=== PATIENT | male | born 1950 | race Hispanic/Latino ===

== ENCOUNTER 2018-03-15 18:43 | Emergency (ER) | payer MEDICARE ==
[2018-03-15 18:47] VITALS: BMI 28.7
[2018-03-15 19:01] VITALS: RESP 18; TEMP 98
[2018-03-15] MEDS ORDERED: Oxycodone/Acetaminophen 5/325 mg Tab ONE (19:22)
--- NOTE | 2018-03-15 19:28 | ED PDOC ---
Arrival/HPI - General Chief Complaint: ENT Problem Time Seen by Provider: 03/15/18 19:26 Historian: Patient - History of Present Illness Narrative History of Present Illness (Text): 03/15/18 19:29 67 year old male, with past medical history of hypertension, CAD with bypass surgery 1 year ago and on daily aspirin, presents to the Emergency Department complaining of uncontrollable nose bleed today. Patient informs intermittent nose bleed for the past week which resolved spontaneously. However, patient reports uncontrollable epistaxis today prompting him to present to an Urgent care. Patient had a balloon inserted at the urgent care without any improvement and was referred to the Ed for further intervention. Patient currently denies any other somatic complaints. Patient denies any fever, chills, nausea, vomiting , diarrhea, abdominal pain, chest pain, shortness of breath, cough, headache, dizziness, neck pain, back pain, or any other complaints. Patient denies smoking cigarettes or drinking alcohol. Time/Duration: 24 hours Symptom Onset: Gradual Symptom Course: Improving Activities at Onset: Light Context: Home Past Medical History - Provider Review Nursing Documentation Reviewed: Yes - Cardiac Hx Hypertension: Yes Hx Pacemaker: No - Neurological Hx Paralysis: No - HEENT Hx Epistaxis: Yes - Hematological/Oncological Hx Blood Transfusions: No - Musculoskeletal/Rheumatological Hx Musculoskeletal Disorders: No - Psychiatric Hx Anxiety: Yes Hx Emotional Abuse: No Hx Physical Abuse: No Hx Substance Use: No - Surgical History Hx Open Heart Surgery: Yes (2018) - Anesthesia Hx Anesthesia Reactions: No Hx Malignant Hyperthermia: No - Suicidal Assessment Feels Threatened In Home Enviroment: No Family/Social History - Physician Review Nursing Documentation Reviewed: Yes Family/Social History: No Known Family HX Smoking Status: Never Smoked Hx Alcohol Use: Yes (SOCIAL) Hx Substance Use: No Allergies/Home Meds Allergies/Adverse Reactions: Allergies No Known Allergies Allergy (Verified 12/05/14 09:56) Home Medications: Home Meds Medication Instructions Recorded Confirmed ALPRAZolam [Xanax] 0.25 mg PO PRN PRN 12/30/14 05/02/16 Aspirin [Aspirin EC] 81 mg PO DAILY 12/30/14 05/02/16 Metoprolol Succinate XL [Toprol XL] 100 mg PO DAILY 12/30/14 05/02/16 Candesartan/Hydrochlorothiazid 1 tab PO DAILY 01/15/16 05/02/16 [Candesartan-Hctz 16-12.5 mg Tb] Review of Systems - Physician Review All systems were reviewed & negative as marked: Yes - Review of Systems Constitutional: absent: Fevers ENT: Epistaxis Respiratory: absent: SOB, Cough Cardiovascular: absent: Chest Pain, [place] Gastrointestinal: absent: Abdominal Pain, Diarrhea, Nausea, Vomiting Musculoskeletal: absent: Back Pain, Neck Pain Neurological: absent: Headache, Dizziness Physical Exam Vital Signs Reviewed: Yes Vital Signs Temp Pulse Resp BP Pulse Ox 03/15/18 22:30 62 18 146/82 100 03/15/18 20:52 61 18 153/87 H 98 03/15/18 18:55 98 F 68 18 171/104 H 97 Temperature: Afebrile Blood Pressure: Hypertensive Pulse: Regular Respiratory Rate: Normal Appearance: Positive for: Well-Appearing, Non-Toxic, Comfortable Pain Distress: None Mental Status: Positive for: Alert and Oriented X 3 - Systems Exam Head: Present: Atraumatic, Normocephalic Pupils: Present: PERRL Extroacular Muscles: Present: EOMI Conjunctiva: Present: Normal Nose (External): Present: Atraumatic Nose (Internal): Present: Epistaxis (active bleeding in left nare) Neck: Present: Normal Range of Motion Respiratory/Chest: Present: Clear to Auscultation, Good Air Exchange. No: Respiratory Distress, Accessory Muscle Use Cardiovascular: Present: Regular Rate and Rhythm, Normal S1, S2. No: Murmurs Abdomen: No: Tenderness, Distention, Peritoneal Signs Back: Present: Normal Inspection Upper Extremity: Present: Normal Inspection. No: Cyanosis, Edema Lower Extremity: Present: Normal Inspection. No: Edema Neurological: Present: GCS=15, CN II-XII Intact, Speech Normal Skin: Present: Warm, Dry, Normal Color. No: Rashes Psychiatric: Present: Alert, Oriented x 3, Normal Insight, Normal Concentration Medical Decision Making ED Course and Treatment: 03/15/18 19:42 Impression: 67 year old male presents to the Ed complaining of epistaxis. Differential Diagnosis included but are not limited to: Epistaxis Plan: -- Labs -- Oxycodone -- Reassess and disposition Prior Visits: Notes and results from previous visits were reviewed. Progress Notes: 03/15/18 19:44 PROCEDURE: EPISTAXIS MANAGEMENT Performed by the emergency provider Consent: Informed consent was obtained after discussion of the risks, benefits, and alternatives to the procedure. Timeout: A timeout to verify the correct patient, procedure, and site was performed immediately prior to the procedure. Indication: Nasal bleeding control Location: Left naris Bleeding Source: Anterior posterior Procedure: 7.5 balloon inserted with 10cc air. Post-procedure: Good hemostasis not achieved. Will inject 2cc and 1cc of air consecutively. 03/15/18 19:50 Injected 2cc of air. Bleeding is still active. 03/15/18 20:15 Injected 1 cc of air. 03/15/18 22:15: On re-evaluation, patient feels better and is in no acute distress. I have discussed the results and plan with the patient, who expresses understanding. Patient in agreement with plan to be discharged home. Patient is stable for discharge. Patient was instructed to follow up with physician or return if symptoms worsen or new concerning symptoms arise. - Lab Interpretations Lab Results: 03/15/18 19:45 03/15/18 19:45 Lab Results 03/15/18 19:56: Blood Type B POSITIVE, Antibody Screen Negative, BBK History Checked Patient has bt 03/15/18 19:45: Sodium 140, Potassium 3.7, Chloride 104, Carbon Dioxide 30, Anion Gap 10, BUN 29 H, Creatinine 1.1, Est GFR ( Amer) > 60, Est GFR ( Non-Af Amer) > 60, Random Glucose 102, Calcium 9.0, Total Bilirubin 0.7, AST 42 , ALT 33, Alkaline Phosphatase 82, Total Protein 7.2, Albumin 4.1, Globulin 3.1 , Albumin/Globulin Ratio 1.3 03/15/18 19:45: PT 12.1, INR 1.06, APTT 31.1 03/15/18 19:45: WBC 5.9, RBC 4.59, Hgb 14.4, Hct 42.0, MCV 91.5, MCH 31.4, MCHC 34.3, RDW 13.3, Plt Count 149, MPV 10.4, Gran % 64.6, Lymph % (Auto) 26.2, Antelope % (Auto) 7.5 H, Eos % (Auto) 1.4 L, Baso % (Auto) 0.3, Gran # 3.79, Lymph # ( Auto) 1.5, Antelope # (Auto) 0.4, Eos # (Auto) 0.1, Baso # (Auto) 0.02 - Medication Orders Current Medication Orders: Discontinued Medications Oxycodone/Acetaminophen (Percocet 5/325 Mg Tab) 2 tab PO STAT STA Stop: 03/15/18 19:31 Last Admin: 03/15/18 19:30 Dose: 2 tab MAR Pain Assessment Document 03/15/18 19:30 AD (Rec: 03/15/18 20:21 AD [id number]) Pain Reassessment Is this a pain reassessment? No Presence of Pain Presence of Pain Yes Pain Scale Used Pain Scale Used Numeric Description Intensity of Pain at present 8 - Scribe Statement The provider has reviewed the documentation as recorded by the Scribe Indio Mandujano. All medical record entries made by the Scribe were at my direction and personally dictated by me. I have reviewed the chart and agree that the record accurately reflects my personal performance of the history, physical exam, medical decision making, and the department course for this patient. I have also personally directed, reviewed, and agree with the discharge instructions and disposition. Disposition/Present on Arrival - Present on Arrival Any Indicators Present on Arrival: No History of DVT/PE: No History of Uncontrolled Diabetes: No Urinary Catheter: No History of Decub. Ulcer: No History Surgical Site Infection Following: None - Disposition Have Diagnosis and Disposition been Completed?: Yes Diagnosis: Epistaxis Disposition: HOME/ ROUTINE Disposition Time: 22:00 Patient Plan: Discharge Condition: GOOD Discharge Instructions (ExitCare): Nosebleeds (DC) Additional Instructions: PLEASE SEE THE ENT DOCTOR TOMORROW AND TELL THEM THERE IS 13cc OF AIR IN THE [place]. RETURN TO US IF ANY PROBLEMS!!!!! Prescriptions: oxyCODONE/Acetaminophen [Percocet 5/325 mg Tab] 1 ea PO QID #20 tab Referrals: Pro Stewart DO [Staff Provider] - Follow up with primary Forms: [employer] ([place])
[2018-03-15] MEDS ORDERED: Oxycodone/Acetaminophen 5/325 mg Tab PO STA (19:30)
[2018-03-15 20:07] LABS: BASO # 0.02 K/mm3 (0.0-2.0); BASO % 0.3 % (0.0-3.0); EOS # 0.1 (0.0-0.7); EOS % 1.4 % (1.5-5.0); GRAN # 3.79 (1.4-6.5); GRAN % 64.6 % (50.0-68.0); HEMOGLOBIN 14.4 g/dL (14.0-18.0); LYMPH # 1.5 (1.2-3.4); LYMPH % 26.2 % (22.0-35.0); MEAN CELL VOLUME 91.5 fl (80.0-105.0); MEAN CORPUSCULAR HEMOGLOBIN 31.4 pg (25.0-35.0); MEAN CORPUSCULAR HGB CONC 34.3 g/dl (31.0-37.0); MEAN PLATELET VOLUME 10.4 fl (7.0-11.0); MONO # 0.4 (0.1-0.6); MONO % 7.5 % (1.0-6.0); RBC 4.59 10^6/uL (3.5-6.1); RED CELL DISTRIBUTION WIDTH 13.3 % (11.5-14.5); WHITE BLOOD COUNT 5.9 10^3/ul (4.5-11.0)
[2018-03-15 20:10] LABS: ALB/GLOB RATIO 1.3 (1.1-1.8); ALBUMIN 4.1 g/dL (3.0-4.8); ALT/SGPT 33 U/L (7-56); AST/SGOT 42 U/L (17-59); BLOOD UREA NITROGEN 29 mg/dL (7-21); GFR NON-AFRICAN AMERICAN > 60; INR 1.06; PARTIAL THROMBOPLASTIN TIME 31.1 Seconds (25.1-36.5); PROTHROMBIN TIME 12.1 SECONDS (9.4-12.5)
[2018-03-15 23:24] VITALS: BP 146/82; PULSE 62; O2SAT 100
== END 2018-03-15 22:30 | disposition home or self-care (01) ==
LOC: ED 18:43
DX: R04.0 Epistaxis (principal); I10 Essential (primary) hypertension; I25.10 Atherosclerotic heart disease of native coronary artery without angina pectoris